=== PATIENT | female | born 1955 | race Caucasian/White ===

== ENCOUNTER 2024-09-26 05:56 | Outpatient (CLI) | payer MEDICARE, BC | END 2024-09-26 23:59 | disposition home or self-care (01) | LOC: MRI02 05:56 | PROVIDERS: ATTEND Podiatrist Foot & Ankle Surgery | DX: M19.072 Primary osteoarthritis, left ankle and foot (principal); M79.672 Pain in left foot; M25.80 Other specified joint disorders, unspecified joint | CPT/HCPCS: 73718 ==